=== PATIENT | male | born 1985 | race Caucasian/White ===

== ENCOUNTER 2018-12-28 23:45 | Emergency (ER) | payer OTHER, BC ==
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
== END 2018-12-29 00:23 | disposition home or self-care (01) ==
LOC: VM.ED 23:45
DX: S01.81XA Laceration without foreign body of other part of head, initial encounter (principal); Z88.0 Allergy status to penicillin; V89.2XXA Person injured in unspecified motor-vehicle accident, traffic, initial encounter
CPT/HCPCS: 12011; 99283-25